=== PATIENT | male | born 1980 | race Hispanic/Latino ===

== ENCOUNTER 2021-10-02 13:13 | Emergency (ER) | payer SELFPAY | END 2021-10-02 16:31 | disposition home or self-care (01) | LOC: ERS 13:13 | DX: I10 Essential (primary) hypertension (principal); K02.9 Dental caries, unspecified; S60.551A Superficial foreign body of right hand, initial encounter; R19.7 Diarrhea, unspecified; W45.8XXA Other foreign body or object entering through skin, initial encounter | CPT/HCPCS: 93005 ==

== ENCOUNTER 2021-10-11 21:40 | Emergency (ER) | payer SELFPAY | END 2021-10-11 23:33 | disposition home or self-care (01) | LOC: ERS 21:40 | DX: L03.211 Cellulitis of face (principal); I10 Essential (primary) hypertension; Z87.891 Personal history of nicotine dependence | CPT/HCPCS: 99283 ==

== ENCOUNTER 2021-10-13 03:06 | Emergency (ER) | payer SELFPAY ==
[2021-10-13] MEDS ORDERED: Bupivacaine 0.25% 10 ML VIAL ONE (03:58)
== END 2021-10-13 04:37 | disposition home or self-care (01) ==
LOC: ERS 03:06
DX: K02.9 Dental caries, unspecified (principal); Z87.891 Personal history of nicotine dependence; I10 Essential (primary) hypertension
CPT/HCPCS: 99282; S0020

== ENCOUNTER 2021-10-18 12:58 | Emergency (ER) | payer SELFPAY | END 2021-10-18 13:50 | disposition home or self-care (01) | LOC: ERS 12:58 | DX: M72.2 Plantar fascial fibromatosis (principal); I10 Essential (primary) hypertension ==

== ENCOUNTER 2021-10-20 20:27 | Emergency (ER) | payer SELFPAY ==
[2021-10-20] MEDS ORDERED: Acetaminophen 500 MG TAB ONE (21:05)
== END 2021-10-20 21:11 | disposition home or self-care (01) ==
LOC: ERS 20:27
DX: Z00.8 Encounter for other general examination (principal); I10 Essential (primary) hypertension
CPT/HCPCS: 99281